=== PATIENT | male | born 1980 | race Caucasian/White ===

== ENCOUNTER 2022-02-03 17:20 | Inpatient (IN) | payer SELFPAY ==
[2022-02-03] MEDS ORDERED: Ondansetron PF 4 MG/2 ML Vial ONE (18:10)
[2022-02-03] MEDS ORDERED: Morphine 4 MG/ML VIAL ONE ×2 (18:11→20:02)
[2022-02-03 18:15] LABS: #Basophils 0.1 thou/uL (0.0-0.2); #Monocytes 0.7 thou/uL (0.11-0.59); #Neutrophils 6.9 thou/uL (1.40-6.50); %Basophils 0.6 % (0.0-1.0); %Eosinophils 0.2 % (0.0-10.0); %Lymphocytes 11.6 % (21.0-51.0); %Monocytes 7.9 % (0.0-10.0); %Neutrophils 79.8 % (42.0-75.0); Hemoglobin 14.2 g/dL (14.0-18.0); Mean Corpuscular HGB CONC 33.7 g/dL (32.0-36.0); Mean Corpuscular Hemoglobin 36.3 pg (27.0-31.0); Mean Platelet Volume 9.5 fL (7.4-10.4); Platelet Count 201 10x3/uL (130-400); RBC Distribution Width 12.4 % (11.5-14.5); White Blood Cell (WBC) Count 8.6 10x3/uL (4.8-10.8)
[2022-02-03 18:28] LABS: MDiff Complete? YES; Macrocytosis SLIGHT = 6-15 cells (100X) (0-5/hpf); Platelet Morphology Comment Appears Adequate
[2022-02-03 18:35] LABS: ALT (SGPT) 398 U/L (8-55); AST (SGOT) 675 U/L (5-34); Alkaline Phosphatase 119 U/L (40-110); Anion Gap 27 mmol/L (10-20); BUN (Urea Nitrogen) 8 mg/dL (8.9-20.6); Bilirubin, Total 2.1 mg/dL (0.2-1.2); Calc. Creatinine Clearance 0 mL/min (70-130); Calcium 10.4 mg/dL (7.8-10.44); Carbon Dioxide 21 mmol/L (22-29); Chloride 96 mmol/L (98-107); Estimated GFR 113; Globulin 3.5 g/dL (2.4-3.5); Glucose 108 mg/dL (70-105); Lipase 693 U/L (8-78); Potassium 3.7 mmol/L (3.5-5.1); Protein, Total 8.5 g/dL (6.0-8.3); Sodium 140 mmol/L (136-145)
[2022-02-03 22:00] LABS: Lactic Acid 1.9 mmol/L (0.5-2.2)
[2022-02-03] MEDS ORDERED: Ketorolac Tromethamine 30 MG/ML VIAL ONE (22:35)
[2022-02-03] MEDS ORDERED: FENTANYL 50 MCG/ML 1 ML VIAL ONE (22:35)
[2022-02-03] MEDS ORDERED: Ondansetron ODT 4 MG TAB PO PRN (23:12)
[2022-02-03] MEDS ORDERED: Ondansetron PF 4 MG/2 ML Vial IVP PRN (23:12)
[2022-02-03] MEDS ORDERED: Acetaminophen 650 MG Suppository PR PRN (23:12)
[2022-02-03] MEDS ORDERED: Acetaminophen 325 MG TAB PO PRN (23:12)
[2022-02-03] MEDS ORDERED: Promethazine HCl 25 MG/ML VIAL IM PRN (23:12)
[2022-02-04 00:30] LABS: Bacteria/HPF None Seen HPF (None Seen); Bilirubin 1+ (Negative); Blood, Urine Negative (Negative); Clarity Clear (Clear); Glucose, Urine (Dipstick) Normal (Negative); Ketone, Urine Greater than 150 mg/dL (Negative); Leukocyte Negative Leu/uL (Negative); Mucous/LPF Rare LPF (<2+); Nitrite Negative (Negative); Protein, Urine (Dipstick) 50 mg/dL (Neg-Trace); RBC/HPF 0-3 HPF (0-3); Squamous Epithelial None Seen HPF (0-3); Urobilinogen 6 mg/dL (Less than 2); WBC/HPF 0-3 HPF (0-3); pH, Urine 7.5 (5.0-9.0)
[2022-02-04 00:32] LABS: Specific Gravity, Urine Greater than 1.060 (1.002-1.036)
[2022-02-04] MEDS: Morphine 4 MG/ML VIAL SLOW IVP PRN ×6 (01:09→21:35)
[2022-02-04] MEDS: Ketorolac Tromethamine 30 MG/ML VIAL IVP PRN ×3 (01:10→19:46)
[2022-02-04] MEDS: Sodium Chloride 0.9% 1,000 ML IV SCH ×5 (01:11→21:34)
[2022-02-04 01:23] VITALS: BMI 22.0
[2022-02-04 03:26] LABS: SARS-CoV-2 NAA Rapid Test Not Detected (NotDetected)
[2022-02-04 05:50] LABS: #Eosinphils 0.1 thou/uL (0.0-0.7); #Lymphocytes 1.4 thou/uL (1.20-3.40); #Monocytes 0.6 thou/uL (0.11-0.59); #Neutrophils 3.6 thou/uL (1.40-6.50); %Basophils 0.4 % (0.0-1.0); %Eosinophils 0.9 % (0.0-10.0); %Lymphocytes 25.3 % (21.0-51.0); %Monocytes 9.8 % (0.0-10.0); %Neutrophils 63.5 % (42.0-75.0); Hemoglobin 11.6 g/dL (14.0-18.0); Mean Corpuscular HGB CONC 33.2 g/dL (32.0-36.0); Mean Corpuscular Hemoglobin 36.5 pg (27.0-31.0); Mean Platelet Volume 9.2 fL (7.4-10.4); Platelet Count 140 10x3/uL (130-400); RBC Distribution Width 12.5 % (11.5-14.5); Red Blood Cell (RBC) Count 3.18 mill/uL (4.70-6.10); White Blood Cell (WBC) Count 5.7 10x3/uL (4.8-10.8)
[2022-02-04 06:06] LABS: Anion Gap 17 mmol/L (10-20); BUN (Urea Nitrogen) 9 mg/dL (8.9-20.6); Calc. Creatinine Clearance 167 mL/min (70-130); Calcium 8.3 mg/dL (7.8-10.44); Carbon Dioxide 22 mmol/L (22-29); Chloride 102 mmol/L (98-107); Estimated GFR 123; Glucose 77 mg/dL (70-105); Potassium 3.4 mmol/L (3.5-5.1); Sodium 138 mmol/L (136-145)
[2022-02-04 06:57] LABS: ALT (SGPT) 262 U/L (8-55); AST (SGOT) 338 U/L (5-34); Albumin 3.9 g/dL (3.5-5.0); Alkaline Phosphatase 87 U/L (40-110); Bilirubin, Direct 1.1 mg/dL (0.1-0.3); Bilirubin, Total 1.9 mg/dL (0.2-1.2); Protein, Total 6.5 g/dL (6.0-8.3)
[2022-02-04] MEDS ORDERED: Lorazepam 2 MG/ML VIAL IM PRN (12:24)
[2022-02-04] MEDS ORDERED: Lorazepam 1 MG TAB PO PRN (12:24)
[2022-02-04] MEDS ORDERED: Electrolyte Replacement Protocol 1 EACH FS SCH (12:30)
[2022-02-04] MEDS ORDERED: Multivit, Therapeutic 1 TAB PO SCH (12:45)
[2022-02-04] MEDS ORDERED: Folic Acid 1 MG TAB PO SCH (12:45)
[2022-02-04] MEDS ORDERED: Potassium Chloride 20 MEQ TAB PO SCH (13:00)
[2022-02-04] MEDS: Thiamine HCl 200 MG/2 ML VIAL SLOW IVP SCH (13:00)
[2022-02-04] MEDS: Lorazepam 1 MG TAB PO SCH ×3 (13:12→23:32)
[2022-02-05] MEDS: Morphine 4 MG/ML VIAL SLOW IVP PRN ×3 (03:52→14:57)
[2022-02-05 04:48] LABS: #Eosinphils 0.1 thou/uL (0.0-0.7); #Lymphocytes 1.2 thou/uL (1.20-3.40); #Monocytes 0.5 thou/uL (0.11-0.59); #Neutrophils 3.2 thou/uL (1.40-6.50); %Basophils 0.7 % (0.0-1.0); %Eosinophils 2.9 % (0.0-10.0); %Lymphocytes 22.8 % (21.0-51.0); %Monocytes 10.5 % (0.0-10.0); Hemoglobin 11.1 g/dL (14.0-18.0); Mean Corpuscular HGB CONC 32.3 g/dL (32.0-36.0); Mean Corpuscular Hemoglobin 35.7 pg (27.0-31.0); Mean Platelet Volume 9.1 fL (7.4-10.4); Platelet Count 136 10x3/uL (130-400); RBC Distribution Width 12.3 % (11.5-14.5); White Blood Cell (WBC) Count 5.1 10x3/uL (4.8-10.8)
[2022-02-05 05:08] LABS: Anion Gap 19 mmol/L (10-20); BUN (Urea Nitrogen) 5 mg/dL (8.9-20.6); Calc. Creatinine Clearance 191 mL/min (70-130); Calcium 8.4 mg/dL (7.8-10.44); Carbon Dioxide 21 mmol/L (22-29); Chloride 97 mmol/L (98-107); Estimated GFR 128; Potassium 3.4 mmol/L (3.5-5.1); Sodium 134 mmol/L (136-145)
[2022-02-05 05:15] LABS: Glucose 53 mg/dL (70-105)
[2022-02-05] MEDS ORDERED: Dextrose 5% in Water 1,000 ML IV PRN (05:45)
[2022-02-05] MEDS ORDERED: Dextrose 50% Abboject 50 ML SYRINGE IVP PRN (05:45)
[2022-02-05] MEDS: Lorazepam 1 MG TAB PO SCH ×3 (06:04→17:30)
[2022-02-05] MEDS: Sodium Chloride 0.9% 1,000 ML IV SCH ×3 (07:57→22:37)
[2022-02-05] MEDS: Potassium Chloride 20 MEQ in Premix Bag 1 BAG IVPB SCH ×2 (07:57→09:52)
[2022-02-05] MEDS ORDERED: Folic Acid 1 MG TAB PO SCH (09:00)
[2022-02-05] MEDS ORDERED: Multivit, Therapeutic 1 TAB PO SCH (09:00)
[2022-02-05] MEDS: Thiamine HCl 200 MG/2 ML VIAL SLOW IVP SCH (11:51)
[2022-02-05] MEDS ORDERED: Lorazepam 1 MG TAB PO PRN (12:24)
[2022-02-05 22:09] VITALS: BP 136/92; TEMP 98.6
[2022-02-06] MEDS ORDERED: Lorazepam 1 MG TAB PO PRN (12:24)
[2022-02-06] MEDS ORDERED: Lorazepam 0.5 MG TAB PO SCH (12:30)
[2022-02-07] MEDS ORDERED: Thiamine 100 MG TAB PO SCH (09:00)
[2022-02-07] MEDS ORDERED: FLU VACC QS2022-23(6MOS UP)/PF 60 MCG/0.5 ML SYRINGE IM ONE (09:00)
[2022-02-07] MEDS ORDERED: Lorazepam 0.5 MG TAB PO PRN (12:24)
== END 2022-02-05 21:30 | disposition left against medical advice (07) | DRG 439 ==
LOC: ERS 17:20 → SURG A 23:05
PROVIDERS: ADMIT Student in an Organized Health Care Education/Training Program; ATTEND Internal Medicine
DX: K85.20 Alcohol induced acute pancreatitis without necrosis or infection (principal); E87.20 Acidosis, unspecified; K86.1 Other chronic pancreatitis; K70.10 Alcoholic hepatitis without ascites; K76.0 Fatty (change of) liver, not elsewhere classified; Z20.822 Contact with and (suspected) exposure to COVID-19; Z87.891 Personal history of nicotine dependence
CPT/HCPCS: 36415; 36416; 74177; 76705; 80048; 80053; 80076; 81003; 81015; 83605; 83690; 85025; 96374; 96375; 96376; J1885; J2060; J2270; J2405; J3010; J3411; J3480; J7050; J7070; U0002